=== PATIENT | female | born 1940 | race Two or more races ===

== ENCOUNTER 2017-05-21 20:07 | Inpatient (IN) | payer MEDICARE, OTHER ==
[~2017-05-21] VITALS: Ht 167.6 cm; Wt 54.5 kg
--- NOTE | 2017-05-21 20:23 | NUR ---
76 YO FEMALE BB RA FROM HOME, C/O SOB WITH HX OF STAGE 4 LUNG CANCER. PATIENT DS TO ER BED, SKIN WARM AND DRY, RESP EVEN AND UNLABORED. PT PLACED ON CARDAIC MONITOR. AWAITING ORDERS FROM PROVIDER
[2017-05-21 20:41] LABS: BASOPHILS % (AUTO) 0.2 % (0.0-2.0); EOSINOPHILS % (AUTO) 0.4 % (0.0-6.0); HEMATOCRIT 36 % (33-45); HEMOGLOBIN 11.2 g/dL (11.5-14.8); LYMPHOCYTES % (AUTO) 25.5 % (20.0-44.0); MEAN CORPUSCULAR HEMOGLOBIN 21 PG (26.0-33.0); MEAN CORPUSCULAR HGB CONC 31 g/dl (31.0-36.0); MEAN CORPUSCULAR VOLUME 67 fL (82-100); MONOCYTES % (AUTO) 8.8 % (2.0-12.0); NEUTROPHILS # (AUTO) 7.9 /CMM (1.8-8.9); NEUTROPHILS % (AUTO) 65.1 % (43.0-81.0); PLATELET COUNT (AUTO) 495 /CMM (150-450); RDW COEFFICIENT OF VARIATION 14.2 (11.5-15.0); WHITE BLOOD COUNT (AUTO) 11.9 K/uL (4.3-11.0)
[2017-05-21 20:52] LABS: CALCIUM, SERUM 10.7 mg/dL (8.5-10.1); CARBON DIOXIDE 32 mmol/L (21-32); CHLORIDE 102 mmol/L (98-107); CREATININE 0.9 mg/dL (0.6-1.3); GLUCOSE 97 mg/dL (74-106); POTASSIUM 3.4 mmol/L (3.5-5.1); SODIUM SERUM 141 mmol/L (136-145); UREA NITROGEN, BLOOD 18 mg/dL (7-18)
[2017-05-21 20:55] LABS: INR 0.93 (0.85-1.15)
[2017-05-21 21:00] LABS: TROPONIN I < 0.017 ng/mL (0.00-0.056)
[2017-05-21 21:04] LABS: ALANINE AMINOTRANSFERASE 19 U/L (12-78); ALBUMIN 2.7 g/dL (3.4-5.0); ALKALINE PHOSPHATASE 59 U/L (46-116); ASPARTATE AMINOTRANSFERASE 22 U/L (15-37); B-TYPE NATRIURETIC PEPTIDE 420 PG/ML (0-125); BILIRUBIN,DIRECT 0.1 mg/dL (0.0-0.2); BILIRUBIN,TOTAL 0.3 mg/dL (0.2-1.0)
--- NOTE | 2017-05-21 21:17 | NUR ---
PAGED EPIC FOR PANEL
[2017-05-21] MEDS ORDERED: IOHEXOL-350 100 ML VIAL IV ONE (21:36)
[2017-05-21] MEDS ORDERED: IV NS 0.9% 250 ML IV ONE (21:36)
[2017-05-21] MEDS ORDERED: CT SWABBABLE VALVE TRANS SET 1 EA INFUS.SET MC ONE (21:36)
--- NOTE | 2017-05-21 21:44 | NUR ---
CALLED NURSE SUP FOR TELE BED
[2017-05-21] MEDS ORDERED: ACETAMINOPHEN 325 MG TABLET PO PRN (22:00)
[2017-05-21] MEDS ORDERED: HYDROCODONE/APAP 5/325MG 1 EACH TABLET PO PRN (22:00)
[2017-05-21] MEDS ORDERED: LORAZEPAM 1 MG TABLET PO PRN (22:00)
[2017-05-21] MEDS ORDERED: ALBUTEROL FS 2.5 MG/0.5 ML VIAL.NEB NEB PRN (22:00)
[2017-05-21] MEDS ORDERED: Z GUARD REMEDY 2 OZ OINT TP PRN (22:00)
[2017-05-21] MEDS ORDERED: MAG HYDROX/AL HYDROX/SIMETH 30 ML UDC PO PRN (22:00)
[2017-05-21] MEDS ORDERED: MAGNESIUM HYDROXIDE 30 ML UDC PO PRN (22:00)
[2017-05-21] MEDS ORDERED: ONDANSETRON HCL/PF 4 MG/2 ML VIAL IVP PRN (22:00)
[2017-05-21] MEDS ORDERED: POTASSIUM CHLORIDE 20 MEQ TAB.PRT.SR PO ONE ×2 (22:00→22:02)
[2017-05-21 22:15] VITALS: BP 135/56
--- NOTE | 2017-05-21 23:08 | NUR ---
REPORT WAS GIVEN TO [place] LUNDBERG FOR MEGAN
[2017-05-21 23:45] VITALS: BP 145/80
--- NOTE | 2017-05-21 23:45 | NUR ---
MULTIMEDIA ASSISTANT NOTE RECEIVED PATIENT FROM ER VIA [facility]. NO SOB NOTED. PATIENT DENIES ANY PAIN OR DISTRESS. ALERT AD ORIENTED. IV SITE INTACT, WITH NO REDNESS OR INFILTRATION NOTED. SKIN INTACT, WITH NO BREAKDOWN OR BRUISING NOTED. ALL BELONGINGS CHECKED AND ACCOUNTED FOR. MED RECON COMPLETED. WAITING FOR MD ORDERS. BED LOCKED AND IN LOWEST POSITION. SIDE RAILS UP, CALL LIGHT WITHIN REACH. WILL CONTINUE TO MONITOR.
[2017-05-22] VITALS (7 sets, daily range): BP systolic 103–153; BP diastolic 56–105
[2017-05-22] MEDS: ENOXAPARIN SODIUM 40 MG/0.4 ML DISP.SYRIN SQ SCH ×2 (00:03→21:22)
[2017-05-22] MEDS: methylPREDNISolone SOD SUCC 125 MG/2ML VIAL IV SCH ×5 (01:31→21:20)
[2017-05-22] MEDS ORDERED: METF500T4 PO (02:08)
[2017-05-22] MEDS ORDERED: METO-356 PO (02:08)
--- NOTE | 2017-05-22 06:27 | NUR ---
TILTING HEAD BAND SAWYER NOTE PATIENT STABLE. ALL NEEDS MET AND ATTENDED TO. WILL ENDORSE TO DAY SHIFT FOR MEGAN.
[2017-05-22 07:35] LABS: BASOPHILS % (AUTO) 0.3 % (0.0-2.0); HEMATOCRIT 34 % (33-45); HEMOGLOBIN 10.6 g/dL (11.5-14.8); LYMPHOCYTES # (AUTO) 1.7 /CMM (0.8-4.8); LYMPHOCYTES % (AUTO) 16.4 % (20.0-44.0); MEAN CORPUSCULAR HEMOGLOBIN 21 PG (26.0-33.0); MEAN CORPUSCULAR HGB CONC 31 g/dl (31.0-36.0); MEAN CORPUSCULAR VOLUME 68 fL (82-100); MONOCYTES # (AUTO) 0.1 /CMM (0.1-1.30); MONOCYTES % (AUTO) 1.4 % (2.0-12.0); NEUTROPHILS # (AUTO) 8.7 /CMM (1.8-8.9); NEUTROPHILS % (AUTO) 81.9 % (43.0-81.0); PLATELET COUNT (AUTO) 495 /CMM (150-450); RDW COEFFICIENT OF VARIATION 15.6 (11.5-15.0); RED BLOOD CELL COUNT(AUTO) 5.04 MIL/uL (4.0-5.2); WHITE BLOOD COUNT (AUTO) 10.7 K/uL (4.3-11.0)
[2017-05-22 07:45] LABS: CALCIUM, SERUM 9.8 mg/dL (8.5-10.1); CARBON DIOXIDE 29 mmol/L (21-32); CHLORIDE 104 mmol/L (98-107); GLUCOSE 147 mg/dL (74-106); POTASSIUM 4.7 mmol/L (3.5-5.1); SODIUM SERUM 140 mmol/L (136-145); UREA NITROGEN, BLOOD 19 mg/dL (7-18)
[2017-05-22 07:46] LABS: MAGNESIUM 1.6 mg/dL (1.8-2.4); PHOSPHORUS 2.1 mg/dL (2.5-4.9)
[2017-05-22] MEDS ORDERED: POTASSIUM PHOSPHATE MM 15 MMOL in IV D5W 250 ML IV SCH (09:30)
[2017-05-22] MEDS: Magnesium 1GM/D5W 100ML PREMIX 100 ML IV SCH ×2 (09:47→10:51)
[2017-05-22 11:37] LABS: BAND % (MANUAL) 5 % (0.0-5.0); LYMPHOCYTES % (MANUAL) 16 % (16-48); METAMYELOCYTES % 1 % (0-0); MONOCYTES % (MANUAL) 3 % (0-11.0); MYELOCYTES % 2 % (0-0); NEUTROPHILS % (MANUAL) 73 (42-76)
[2017-05-22] MEDS: POTASSIUM PHOSPHATE MM 7.5 MMOL in IV D5W 100 ML IV SCH ×3 (12:20→15:45)
--- NOTE | 2017-05-22 13:00 | NUR ---
PTX IN AND PT. UP IN CHAIR,TOL. AIKEN.
[2017-05-22] MEDS: METFORMIN 500 MG TABLET PO SCH ×2 (13:30→17:00)
[2017-05-22] MEDS: METOPROLOL SUCCINATE 25 MG TAB.SR.24H PO SCH (13:59)
--- NOTE | 2017-05-22 14:33 | NUR ---
Asbestos Siding Mechanic Consult was requested by TOÑO Hope in regards to discussion of code status. Pt.'s daughter Kristin Serra ([phone]) stated that she wanted full code. Dr. Miryam Osman is aware and agreeable. Addendum: 05/22/17 at 1533 by ROBERTO CARLOS NEGRON WRONG PATIENT. PLEASE DISREGARD NOTE.
--- NOTE | 2017-05-22 15:00 | NUR ---
SOCIAL SERVICE IN TO DISCUSS CODE STSTUS WITH PT. TO FOLLOW UP TOMORROW WITH .
--- NOTE | 2017-05-22 18:00 | NUR ---
PHOSPHOROUS AND MG IV REPLACEMENT TODAY.EXPLANATION GIVEN TO PT.
[2017-05-22] MEDS ORDERED: BRIM5DRO5 EACHEYE (18:04)
[2017-05-22] MEDS ORDERED: LATA2.5D7 EACHEYE (18:04)
--- NOTE | 2017-05-22 18:50 | NUR ---
HOME MED RECONCILED INCLUDING EYE DROPS THAT PT. JUST REMEMBERED.
--- NOTE | 2017-05-22 19:30 | NUR ---
MS RN NOTE RECEIVED PATIENT AWAKE AND ALERT IN BED. ABLE TO MAKE NEEDS KNOWN. IV SITE INTACT WITH NO REDNESS OR INFILTRATION NOTED. BED LOCKED AND IN LOWEST POSITION. SIDE RAILS UP, CALL LIGHT WITHIN REACH. WILL CONTINUE TO MONITOR.
--- NOTE | 2017-05-22 20:28 | NUR ---
Spoke with patient, she is alert and pleasant. She lives on the 1st floor apartment with her 98 year old mother [address] [place] [address] tel# [phone]. Prior to admission, she was on hospice care Dx. lung cancer with [facility]. Patient was not able to provide contact info of the hospice company. She normally ambulates with a walker and cane prior to admission. She requires min-mod assist with adl's. She has a supervisor porcelain department caregiver 3hrs/day only. She has adequate DME: cane, walker, wheelchair, shower chair and rolator. Patient does not want to continue with hospice care. She plan to go home with homehealth. Family will provide ride home once discharge. Elizabeth Yost [phone]. Addendum: 05/22/17 at 2027 by LATONIA PALM RN Amended: Links added.
[2017-05-22] MEDS: BRIMONIDINE TARTRATE OPHT SOLN 5 ML BOTTLE EACHEYE SCH (21:21)
--- NOTE | 2017-05-23 06:43 | NUR ---
MS RN NOTE ALL NEEDS MET AND ATTENDED TO. WILL ENDORSE TO DAY SHIFT FOR MEGAN.
[2017-05-23 08:00] VITALS: BP 151/88
[2017-05-23] MEDS: METFORMIN 500 MG TABLET PO SCH ×2 (08:42→17:00)
[2017-05-23] MEDS: methylPREDNISolone SOD SUCC 125 MG/2ML VIAL IV SCH ×4 (08:44→21:34)
[2017-05-23 08:57] VITALS: BP 151/88
--- NOTE | 2017-05-23 08:59 | NUR ---
Ocean Freight Agent Consult was requested by Dr. Miryam Osman in regards to discussion of code status with pt.s family. Patient is a 76 year old Beninese female who was admitted to [facility] for shortness of breath and wheezing x1 day. SW met with pt. and pt.s brother Catracho at her bedside. Patient is oriented x4 and alert. Pt has been residing at [address] [place] [address]. Pts emergency contact is her daughter Lina Yost ([phone]), son Catracho ([phone]), and son Valerio ([phone]).Pt denies any use of drugs and alcohol. Patient has a history of smoking cigarettes, however currently she does not. Patient last smoked cigarettes in 2011. Patient denies any suicidal/homicidal ideation. Pt denies any auditory and visual hallucinations. SW spoke with patient in regards to code status. Patient reported that she did not want her brothers or sister involved in her decision. Pt stated that if it was a medical situation (i.e cardiac arrest) she wants DNR/DNI. However, she stated that if she were to choke on a piece of chicken that life saving measures could be taken. SW informed pts nurse Lane. Based on discussion with TOÑO Lane, she advised that the doctor will discuss the code status further with pt and he will complete POLST if necessary. Also informed that patient wants to make the decision herself and does not want her family involved regarding the code status. SW also informed charge nurse Mayorga regarding the above information. Plan: Charge nurse Mayorga will put POLST form in the patients file and TOÑO Kathleen will endorse to shift manager regarding patients wishes.
--- NOTE | 2017-05-23 09:00 | NUR ---
DR. GOODWIN IN TO SEE PT. STATES SHE TOLD HIM SHE HAS DIZZINESS ALL THE TIME.NO NEW ORDERS.
[2017-05-23] MEDS: METOPROLOL SUCCINATE 25 MG TAB.SR.24H PO SCH (09:35)
[2017-05-23] MEDS: BRIMONIDINE TARTRATE OPHT SOLN 5 ML BOTTLE EACHEYE SCH ×2 (11:07→17:43)
[2017-05-23] MEDS ORDERED: MECLIZINE HCL 12.5 MG TABLET PO PRN (12:30)
[2017-05-23 16:00] VITALS: BP 123/69
--- NOTE | 2017-05-23 18:00 | NUR ---
MEDICATED X1 FOR DIZZINESS WITH ANTIVERT.
--- NOTE | 2017-05-23 19:25 | NUR ---
MS RN NOTES RECEIVED PT IN BED, AWAKE, A/O X 3, VERBALLY RESPONSIVE. WATCHING TV AT THIS TIME. NO DISTRESS NOR SOB NOTED. RESPIRATION IS EVEN AND UNLABORED. IV SITE ON LAC INTACT AND PATENT. NO S/S OF INFILTRATION NOTED. DENIES ANY PAIN OR DISCOMFORT AT THIS TIME. SAFETY PRECAUTIONS OBSERVED. ALL NEEDS ATTENDED AND MET. KEPT COMFORTABLE. CALL LIGHT WITHIN REACH. WILL CONT TO MONITOR.
[2017-05-23 20:00] VITALS: BP 138/82
[2017-05-23] MEDS: ENOXAPARIN SODIUM 40 MG/0.4 ML DISP.SYRIN SQ SCH (21:34)
[2017-05-23] MEDS ORDERED: LATANOPROST EYE DROP 0.005% 2.5 ML BOTTLE EACHEYE SCH (22:00)
--- NOTE | 2017-05-24 06:48 | NUR ---
MS RN NOTES PT IN BED, AWAKE, A/O X 3, VERBALLY RESPONSIVE. WATCHING TV AT THIS TIME. NO DISTRESS NOR SOB NOTED. RESPIRATION IS EVEN AND UNLABORED. IV SITE ON LAC INTACT AND PATENT. NO S/S OF INFILTRATION NOTED. DENIES ANY PAIN OR DISCOMFORT AT THIS TIME. ALL DUE MEDS GIVEN. SAFETY PRECAUTIONS OBSERVED. ALL NEEDS ATTENDED AND MET. KEPT COMFORTABLE. CALL LIGHT WITHIN REACH. WILL ENDORSE TO NEXT SHIFT FOR MEGAN. .
[2017-05-24 08:00] VITALS: BP 127/68
--- NOTE | 2017-05-24 08:00 | NUR ---
ms rn received on bed, awake,alert,oriented x3,not in any form of distress, respirations even and unlabored,no sob noted. lungs are diminished,abdomen soft,positive bowel sounds,denies pain at this time, will monitor patient's condition.
[2017-05-24 08:58] VITALS: BP 122/68
[2017-05-24] MEDS: METOPROLOL SUCCINATE 25 MG TAB.SR.24H PO SCH (08:58)
[2017-05-24] MEDS: methylPREDNISolone SOD SUCC 125 MG/2ML VIAL IV SCH ×2 (08:58→12:59)
[2017-05-24] MEDS: METFORMIN 500 MG TABLET PO SCH (08:59)
--- NOTE | 2017-05-24 09:00 | NUR ---
ms serrano breakfast served,due meds given,tolerated well.
--- NOTE | 2017-05-24 12:00 | NUR ---
MS RN PATIENT [facility].
[2017-05-24] MEDS ORDERED: PRED20TA PO (12:08)
[2017-05-24] MEDS: BRIMONIDINE TARTRATE OPHT SOLN 5 ML BOTTLE EACHEYE SCH (12:59)
--- NOTE | 2017-05-24 14:10 | NUR ---
MS RN PATIENT WENT TO [facility],VIA AMBULANCE,NO DISTRESS NOTED, DISCHARGE INSTRUCTIONS ADMINISTRATIVE JOB TITLES AND UNDERSTOOD.NO DISTRESS NOTED.
== END 2017-05-24 14:30 | DRG 189 ==
LOC: ER 20:08 → TELE 22:00 → MED 05-22 10:15
PROVIDERS: ADMIT Internal Medicine; ATTEND Internal Medicine
DX: J96.01 Acute respiratory failure with hypoxia (principal); E43 Unspecified severe protein-calorie malnutrition; E11.9 Type 2 diabetes mellitus without complications; E88.09 Other disorders of plasma-protein metabolism, not elsewhere classified; J44.1 Chronic obstructive pulmonary disease with (acute) exacerbation; Z68.1 Body mass index [BMI] 19.9 or less, adult; I10 Essential (primary) hypertension; E87.6 Hypokalemia; E83.39 Other disorders of phosphorus metabolism; E83.42 Hypomagnesemia; Z87.891 Personal history of nicotine dependence; M62.50 Muscle wasting and atrophy, not elsewhere classified, unspecified site; R53.1 Weakness; Z85.118 Personal history of other malignant neoplasm of bronchus and lung; Z79.84 Long term (current) use of oral hypoglycemic drugs
CPT/HCPCS: 36415; 71045-TC; 80048-TC; 80076-TC; 82962-TC; 83735-TC; 83880; 84100-TC; 84484-TC; 85025-TC; 85730-TC; 87081-TC; 97116-TC; 97530-TC; A4606; J1650; J2405; J2930; J3475; J3490; J7050; J7060; J8597; Q9967; Z7610

== ENCOUNTER 2017-06-01 22:37 | Inpatient (IN) | payer MEDICARE, OTHER ==
[~2017-06-01] VITALS: Ht 149.9 cm; Wt 49.9 kg
[~2017-06-01 22:37] MED LIST: BRIM5DRO5 EACHEYE; LATA2.5D7 EACHEYE; METF500T4 PO; METO-356 PO; PRED20TA PO
[2017-06-01] MEDS ORDERED: ACETAMINOPHEN ES 500 MG TABLET ONE (23:27)
[2017-06-01] MEDS ORDERED: ACETAMINOPHEN ES 500 MG TABLET PO ONE (23:30)
[2017-06-01] MEDS ORDERED: IV NS 0.9% 1,000 ML BAG IV ONE (23:30)
[2017-06-01 23:35] LABS: BASOPHILS % (AUTO) 0.1 % (0.0-2.0); HEMATOCRIT 41 % (33-45); HEMOGLOBIN 12.4 g/dL (11.5-14.8); LYMPHOCYTES # (AUTO) 2.2 /CMM (0.8-4.8); LYMPHOCYTES % (AUTO) 8.1 % (20.0-44.0); MEAN CORPUSCULAR HEMOGLOBIN 21 PG (26.0-33.0); MEAN CORPUSCULAR HGB CONC 30 g/dl (31.0-36.0); MEAN CORPUSCULAR VOLUME 68 fL (82-100); MONOCYTES % (AUTO) 3.6 % (2.0-12.0); NEUTROPHILS # (AUTO) 23.8 /CMM (1.8-8.9); NEUTROPHILS % (AUTO) 88.2 % (43.0-81.0); PLATELET COUNT (AUTO) 247 /CMM (150-450); RDW COEFFICIENT OF VARIATION 15.8 (11.5-15.0); RED BLOOD CELL COUNT(AUTO) 6.04 MIL/uL (4.0-5.2); WHITE BLOOD COUNT (AUTO) 26.9 K/uL (4.3-11.0)
[2017-06-01 23:39] LABS: APPEARANCE,URINE SL CLOUDY (CLEAR); BILIRUBIN,URINE NEGATIVE (NEGATIVE); BLOOD, URINE 3+ Ery/uL (NEGATIVE); COLOR,URINE YELLOW (YELLOW); KETONES,URINE TRACE (NEGATIVE); LEUKOCYTE ESTERASE ,URINE TRACE (NEGATIVE); NITRITE, URINE NEGATIVE (NEGATIVE); PH,URINE 5.5 (5.0-8.0); PROTEIN,URINE 2+ mg/dl (NEGATIVE); UGLUCOSE NEGATIVE (NEGATIVE); UROBILINOGEN,URINE 0.2 EU/dL (0.2)
[2017-06-01 23:54] LABS: INR 0.96 (0.87-1.13)
[2017-06-01 23:56] LABS: BACTERIA,URINE None seen /HPF (None Seen); SQUAMOUS EPITHELIAL CELL,UR Few /HPF (None Seen)
[2017-06-01 23:57] LABS: URINE AMORPHOUS URATE Moderate /HPF (None Seen)
[2017-06-02] LABS: CARBON DIOXIDE 25 mmol/L (21-32); CHLORIDE 93 mmol/L (98-107); CREATININE 0.9 mg/dL (0.6-1.3); GLUCOSE 161 mg/dL (74-106); POTASSIUM 3.6 mmol/L (3.5-5.1); SODIUM SERUM 126 mmol/L (136-145); UREA NITROGEN, BLOOD 28 mg/dL (7-18)
[2017-06-02] MEDS ORDERED: CEFTRIAXONE 1GM BAG (ER ONLY) 1 GM/50 ML PIGGYBACK IV ONE
[2017-06-02] MEDS ORDERED: AZITHROMYCIN 500 MG in IV D5W 250 ML IV ONE ×2
[2017-06-02] MEDS ORDERED: CEFTRIAXONE 1GM BAG (ER ONLY) 50 ML IV ONE (00:01)
[2017-06-02] MEDS ORDERED: AZITHROMYCIN 500 MG VIAL ONE (00:01)
[2017-06-02 00:03] LABS: ALANINE AMINOTRANSFERASE 29 U/L (12-78); ALBUMIN 2.7 g/dL (3.4-5.0); ALKALINE PHOSPHATASE 75 U/L (46-116); ASPARTATE AMINOTRANSFERASE 27 U/L (15-37); BILIRUBIN,DIRECT 0.2 mg/dL (0.0-0.2); BILIRUBIN,TOTAL 0.5 mg/dL (0.2-1.0); TOTAL PROTEIN, SERUM 6.9 g/dL (6.4-8.2)
[2017-06-02 00:05] LABS: TROPONIN I < 0.017 ng/mL (0.00-0.056)
[2017-06-02] MEDS ORDERED: IOHEXOL-350 100 ML VIAL IV ONE (00:33)
[2017-06-02] MEDS ORDERED: CT SWABBABLE VALVE TRANS SET 1 EA INFUS.SET MC ONE (00:33)
[2017-06-02] MEDS ORDERED: IV NS 0.9% 250 ML IV ONE (00:34)
[2017-06-02 00:37] LABS: BAND % (MANUAL) 2 % (0.0-5.0); LYMPHOCYTES % (MANUAL) 11 % (16-48); MONOCYTES % (MANUAL) 1 % (0-11.0); NEUTROPHILS % (MANUAL) 86 (42-76)
[2017-06-02] MEDS ORDERED: MAGNESIUM HYDROXIDE 30 ML UDC PO PRN (02:00)
[2017-06-02] MEDS ORDERED: ONDANSETRON HCL/PF 4 MG/2 ML VIAL IVP PRN (02:00)
[2017-06-02] MEDS ORDERED: HYDROCODONE/APAP 5/325MG 1 EACH TABLET PO PRN (02:00)
[2017-06-02] MEDS ORDERED: MAG HYDROX/AL HYDROX/SIMETH 30 ML UDC PO PRN (02:00)
[2017-06-02] MEDS ORDERED: ACETAMINOPHEN 325 MG TABLET PO PRN (02:00)
[2017-06-02] MEDS ORDERED: HYDROCODONE/APAP 10/325MG 1 EA TABLET PO PRN (02:00)
[2017-06-02 02:30] VITALS: BP 124/90
[2017-06-02] MEDS ORDERED: ALBUTEROL FS 2.5 MG/0.5 ML VIAL.NEB NEB PRN (02:30)
[2017-06-02] MEDS ORDERED: IPRATROPIUM NEB FS 0.5 MG/2.5 ML AMPUL.NEB NEB PRN (02:30)
[2017-06-02 07:01] LABS: MAGNESIUM 1.7 mg/dL (1.8-2.4); PHOSPHORUS 2.9 mg/dL (2.5-4.9)
[2017-06-02 08:00] VITALS: BP 139/71
[2017-06-02] MEDS: PANTOPRAZOLE 40 MG TABLET.DR PO SCH (08:26)
[2017-06-02] MEDS: METFORMIN 500 MG TABLET PO SCH ×3 (09:00→17:00)
[2017-06-02] MEDS ORDERED: CEFTRIAXONE 1 G in IV NS 0.9% 50 ML IV SCH ×2 (09:00→21:00)
[2017-06-02] MEDS: IV NS 0.9% 1,000 ML IV PRN (09:14)
[2017-06-02] MEDS: LACTOBACILLUS RHAMNOSUS GG 1 EACH CAP.SPRINK PO SCH ×2 (09:15→17:51)
[2017-06-02] MEDS: predniSONE 20 MG TABLET PO SCH (09:15)
[2017-06-02] MEDS: METOPROLOL SUCCINATE 25 MG TAB.SR.24H PO SCH (09:15)
[2017-06-02] MEDS: BRIMONIDINE TARTRATE OPHT SOLN 5 ML BOTTLE EACHEYE SCH ×2 (09:16→17:51)
[2017-06-02] MEDS ORDERED: AZITHROMYCIN 500 MG in IV D5W 250 ML IV SCH (10:00)
[2017-06-02] MEDS: Magnesium 1GM/D5W 100ML PREMIX 100 ML IV SCH ×2 (11:38→12:53)
[2017-06-02 15:44] LABS: CALCIUM, SERUM 7.8 mg/dL (8.5-10.1); CARBON DIOXIDE 27 mmol/L (21-32); CHLORIDE 107 mmol/L (98-107); CREATININE 0.8 mg/dL (0.6-1.3); GLUCOSE 140 mg/dL (74-106); POTASSIUM 3.7 mmol/L (3.5-5.1); SODIUM SERUM 143 mmol/L (136-145); UREA NITROGEN, BLOOD 20 mg/dL (7-18)
[2017-06-02 16:00] VITALS: BP 115/62
[2017-06-02 16:44] LABS: BASOPHILS % (AUTO) 0.1 % (0.0-2.0); EOSINOPHILS % (AUTO) 0.1 % (0.0-6.0); HEMATOCRIT 37 % (33-45); HEMOGLOBIN 11.6 g/dL (11.5-14.8); LYMPHOCYTES # (AUTO) 2.3 /CMM (0.8-4.8); LYMPHOCYTES % (AUTO) 10.5 % (20.0-44.0); MEAN CORPUSCULAR HEMOGLOBIN 21 PG (26.0-33.0); MEAN CORPUSCULAR HGB CONC 31 g/dl (31.0-36.0); MEAN CORPUSCULAR VOLUME 69 fL (82-100); MONOCYTES # (AUTO) 0.9 /CMM (0.1-1.30); MONOCYTES % (AUTO) 4.4 % (2.0-12.0); NEUTROPHILS # (AUTO) 18.3 /CMM (1.8-8.9); NEUTROPHILS % (AUTO) 84.9 % (43.0-81.0); PLATELET COUNT (AUTO) 221 /CMM (150-450); RDW COEFFICIENT OF VARIATION 15.1 (11.5-15.0); RED BLOOD CELL COUNT(AUTO) 5.41 MIL/uL (4.0-5.2); WHITE BLOOD COUNT (AUTO) 21.5 K/uL (4.3-11.0)
[2017-06-02 17:21] LABS: BAND % (MANUAL) 7 % (0.0-5.0); LYMPHOCYTES % (MANUAL) 10 % (16-48); MONOCYTES % (MANUAL) 5 % (0-11.0); NEUTROPHILS % (MANUAL) 78 (42-76)
[2017-06-02] MEDS: LATANOPROST EYE DROP 0.005% 2.5 ML BOTTLE EACHEYE SCH (17:53)
[2017-06-02] MEDS: CEFEPIME 1 GM in IV D5W 50 ML IV SCH ×2 (18:54→20:43)
[2017-06-02 20:00] VITALS: BP 129/67
[2017-06-02] MEDS: AZITHROMYCIN 500 MG in IV D5W 250 ML IV SCH (22:12)
[2017-06-02] MEDS: ZOLPIDEM TARTRATE 5 MG TABLET PO PRN (22:14)
[2017-06-03] VITALS: BP 129/67
[2017-06-03] MEDS: IV NS 0.9% 1,000 ML IV PRN (04:12)
[2017-06-03 06:27] LABS: BASOPHILS % (AUTO) 0.1 % (0.0-2.0); EOSINOPHILS % (AUTO) 0.1 % (0.0-6.0); HEMATOCRIT 32 % (33-45); HEMOGLOBIN 10.1 g/dL (11.5-14.8); LYMPHOCYTES # (AUTO) 1.5 /CMM (0.8-4.8); MEAN CORPUSCULAR HEMOGLOBIN 21 PG (26.0-33.0); MEAN CORPUSCULAR HGB CONC 31 g/dl (31.0-36.0); MEAN CORPUSCULAR VOLUME 68 fL (82-100); MONOCYTES # (AUTO) 0.8 /CMM (0.1-1.30); MONOCYTES % (AUTO) 4.7 % (2.0-12.0); NEUTROPHILS # (AUTO) 14.6 /CMM (1.8-8.9); NEUTROPHILS % (AUTO) 86.1 % (43.0-81.0); PLATELET COUNT (AUTO) 197 /CMM (150-450); RDW COEFFICIENT OF VARIATION 16.5 (11.5-15.0); RED BLOOD CELL COUNT(AUTO) 4.72 MIL/uL (4.0-5.2); WHITE BLOOD COUNT (AUTO) 16.9 K/uL (4.3-11.0)
[2017-06-03 06:40] LABS: CALCIUM, SERUM 7.5 mg/dL (8.5-10.1); CARBON DIOXIDE 26 mmol/L (21-32); CHLORIDE 109 mmol/L (98-107); CREATININE 0.7 mg/dL (0.6-1.3); GLUCOSE 93 mg/dL (74-106); MAGNESIUM 2.1 mg/dL (1.8-2.4); POTASSIUM 3.6 mmol/L (3.5-5.1); SODIUM SERUM 144 mmol/L (136-145); UREA NITROGEN, BLOOD 18 mg/dL (7-18)
[2017-06-03 06:41] LABS: OSMOLALITY,SERUM 289 mOS/kg (278-305)
[2017-06-03 08:00] VITALS: BP 105/84
[2017-06-03] MEDS: BOOST GLUCOSE CONTROL VANILLA 237 ML BOX PO SCH ×2 (08:00→11:52)
[2017-06-03 08:17] LABS: BAND % (MANUAL) 6 % (0.0-5.0); LYMPHOCYTES % (MANUAL) 10 % (16-48); MONOCYTES % (MANUAL) 4 % (0-11.0); NEUTROPHILS % (MANUAL) 80 (42-76)
[2017-06-03] MEDS: METFORMIN 500 MG TABLET PO SCH ×3 (08:38→16:51)
[2017-06-03] MEDS: CEFEPIME 1 GM in IV D5W 50 ML IV SCH ×2 (08:39→20:47)
[2017-06-03] MEDS: PANTOPRAZOLE 40 MG TABLET.DR PO SCH (08:39)
[2017-06-03] MEDS: predniSONE 20 MG TABLET PO SCH (08:39)
[2017-06-03] MEDS: LACTOBACILLUS RHAMNOSUS GG 1 EACH CAP.SPRINK PO SCH ×2 (08:39→16:50)
[2017-06-03] MEDS: METOPROLOL SUCCINATE 25 MG TAB.SR.24H PO SCH (08:39)
[2017-06-03] MEDS: BRIMONIDINE TARTRATE OPHT SOLN 5 ML BOTTLE EACHEYE SCH ×2 (08:41→16:52)
[2017-06-03 12:00] VITALS: BP 108/58
[2017-06-03 16:00] VITALS: BP 107/60
[2017-06-03] MEDS: LATANOPROST EYE DROP 0.005% 2.5 ML BOTTLE EACHEYE SCH (17:00)
[2017-06-03] MEDS: AZITHROMYCIN 500 MG in IV D5W 250 ML IV SCH (22:42)
[2017-06-04 04:00] VITALS: BP 130/65
[2017-06-04 07:04] LABS: BASOPHILS % (AUTO) 0.2 % (0.0-2.0); EOSINOPHILS % (AUTO) 0.2 % (0.0-6.0); HEMATOCRIT 32 % (33-45); HEMOGLOBIN 9.9 g/dL (11.5-14.8); LYMPHOCYTES # (AUTO) 1.3 /CMM (0.8-4.8); LYMPHOCYTES % (AUTO) 15.5 % (20.0-44.0); MEAN CORPUSCULAR HEMOGLOBIN 21 PG (26.0-33.0); MEAN CORPUSCULAR HGB CONC 31 g/dl (31.0-36.0); MEAN CORPUSCULAR VOLUME 68 fL (82-100); MONOCYTES # (AUTO) 0.7 /CMM (0.1-1.30); NEUTROPHILS # (AUTO) 6.5 /CMM (1.8-8.9); NEUTROPHILS % (AUTO) 76.1 % (43.0-81.0); PLATELET COUNT (AUTO) 200 /CMM (150-450); RDW COEFFICIENT OF VARIATION 16.2 (11.5-15.0); RED BLOOD CELL COUNT(AUTO) 4.65 MIL/uL (4.0-5.2); WHITE BLOOD COUNT (AUTO) 8.5 K/uL (4.3-11.0)
[2017-06-04 07:09] LABS: CALCIUM, SERUM 7.8 mg/dL (8.5-10.1); CARBON DIOXIDE 28 mmol/L (21-32); CHLORIDE 107 mmol/L (98-107); CREATININE 0.6 mg/dL (0.6-1.3); GLUCOSE 108 mg/dL (74-106); POTASSIUM 3.3 mmol/L (3.5-5.1); SODIUM SERUM 142 mmol/L (136-145); UREA NITROGEN, BLOOD 18 mg/dL (7-18)
[2017-06-04 08:00] VITALS: BP 171/82
[2017-06-04] MEDS: BOOST GLUCOSE CONTROL VANILLA 237 ML BOX PO SCH ×2 (08:15→16:31)
[2017-06-04] MEDS: CEFEPIME 1 GM in IV D5W 50 ML IV SCH ×2 (08:15→21:06)
[2017-06-04] MEDS: predniSONE 20 MG TABLET PO SCH (08:18)
[2017-06-04] MEDS: METFORMIN 500 MG TABLET PO SCH ×2 (08:18→16:31)
[2017-06-04] MEDS: PANTOPRAZOLE 40 MG TABLET.DR PO SCH (08:18)
[2017-06-04] MEDS: BRIMONIDINE TARTRATE OPHT SOLN 5 ML BOTTLE EACHEYE SCH ×2 (08:18→16:31)
[2017-06-04] MEDS: LACTOBACILLUS RHAMNOSUS GG 1 EACH CAP.SPRINK PO SCH ×2 (08:18→16:31)
[2017-06-04] MEDS: METOPROLOL SUCCINATE 25 MG TAB.SR.24H PO SCH (09:00)
[2017-06-04 09:26] LABS: EOSINOPHILS % (MANUAL) 1 % (0-4); LYMPHOCYTES % (MANUAL) 20 % (16-48); MONOCYTES % (MANUAL) 6 % (0-11.0); NEUTROPHILS % (MANUAL) 73 (42-76)
[2017-06-04 12:00] VITALS: BP 171/82
[2017-06-04] MEDS ORDERED: POTASSIUM CHLORIDE 20 MEQ TAB.PRT.SR PO SCH (12:00)
[2017-06-04 16:00] VITALS: BP 137/76
[2017-06-04] MEDS: LATANOPROST EYE DROP 0.005% 2.5 ML BOTTLE EACHEYE SCH (17:17)
[2017-06-04] MEDS ORDERED: Z GUARD REMEDY 4 OZ OINT TP PRN (17:30)
[2017-06-04 20:00] VITALS: BP 137/75
[2017-06-04] MEDS: ZOLPIDEM TARTRATE 5 MG TABLET PO PRN (21:06)
[2017-06-04] MEDS ORDERED: AZITHROMYCIN 250 MG TABLET PO SCH (22:00)
[2017-06-05 04:00] VITALS: BP 157/90
[2017-06-05 07:00] VITALS: BP 153/87
[2017-06-05 08:00] VITALS: BP 153/87
[2017-06-05] MEDS: BOOST GLUCOSE CONTROL VANILLA 237 ML BOX PO SCH (08:00)
[2017-06-05 08:01] LABS: BASOPHILS % (AUTO) 0.2 % (0.0-2.0); EOSINOPHILS % (AUTO) 0.1 % (0.0-6.0); HEMATOCRIT 33 % (33-45); HEMOGLOBIN 10.1 g/dL (11.5-14.8); LYMPHOCYTES # (AUTO) 3.3 /CMM (0.8-4.8); LYMPHOCYTES % (AUTO) 34.6 % (20.0-44.0); MEAN CORPUSCULAR HEMOGLOBIN 21 PG (26.0-33.0); MEAN CORPUSCULAR HGB CONC 31 g/dl (31.0-36.0); MEAN CORPUSCULAR VOLUME 68 fL (82-100); MONOCYTES # (AUTO) 0.9 /CMM (0.1-1.30); MONOCYTES % (AUTO) 9.2 % (2.0-12.0); NEUTROPHILS # (AUTO) 5.3 /CMM (1.8-8.9); NEUTROPHILS % (AUTO) 55.9 % (43.0-81.0); PLATELET COUNT (AUTO) 223 /CMM (150-450); RDW COEFFICIENT OF VARIATION 16.1 (11.5-15.0); RED BLOOD CELL COUNT(AUTO) 4.86 MIL/uL (4.0-5.2); WHITE BLOOD COUNT (AUTO) 9.4 K/uL (4.3-11.0)
[2017-06-05 08:06] LABS: CALCIUM, SERUM 8.6 mg/dL (8.5-10.1); CARBON DIOXIDE 27 mmol/L (21-32); CHLORIDE 105 mmol/L (98-107); CREATININE 0.7 mg/dL (0.6-1.3); GLUCOSE 87 mg/dL (74-106); POTASSIUM 3.3 mmol/L (3.5-5.1); SODIUM SERUM 140 mmol/L (136-145); UREA NITROGEN, BLOOD 24 mg/dL (7-18)
[2017-06-05 08:13] VITALS: BP 153/87
[2017-06-05] MEDS: METFORMIN 500 MG TABLET PO SCH (08:13)
[2017-06-05] MEDS: METOPROLOL SUCCINATE 25 MG TAB.SR.24H PO SCH (08:13)
[2017-06-05] MEDS: LACTOBACILLUS RHAMNOSUS GG 1 EACH CAP.SPRINK PO SCH (08:13)
[2017-06-05] MEDS: PANTOPRAZOLE 40 MG TABLET.DR PO SCH (08:13)
[2017-06-05] MEDS: predniSONE 20 MG TABLET PO SCH (08:13)
[2017-06-05] MEDS: CEFEPIME 1 GM in IV D5W 50 ML IV SCH (08:14)
[2017-06-05] MEDS: BRIMONIDINE TARTRATE OPHT SOLN 5 ML BOTTLE EACHEYE SCH (08:16)
[2017-06-05] MEDS ORDERED: POTASSIUM CHLORIDE 20 MEQ TAB.PRT.SR PO SCH (11:00)
[2017-06-05] MEDS ORDERED: LEVO250T2 PO (11:50)
[2017-06-05 11:53] LABS: LYMPHOCYTES % (MANUAL) 45 % (16-48); MONOCYTES % (MANUAL) 8 % (0-11.0); NEUTROPHILS % (MANUAL) 47 (42-76)
== END 2017-06-05 16:30 | DRG 871 ==
LOC: ER 22:38 → TELE1 06-02 00:32 → MEDSG1 06-02 10:36 → MEDSG2 06-05 06:33
PROVIDERS: ADMIT Nurse Practitioner Acute Care; ATTEND Nurse Practitioner Acute Care
DX: A41.9 Sepsis, unspecified organism (principal); J15.6 Pneumonia due to other Gram-negative bacteria; J96.01 Acute respiratory failure with hypoxia; N17.0 Acute kidney failure with tubular necrosis; J15.9 Unspecified bacterial pneumonia; E11.9 Type 2 diabetes mellitus without complications; N39.0 Urinary tract infection, site not specified; E83.42 Hypomagnesemia; E86.0 Dehydration; B96.20 Unspecified Escherichia coli [E. coli] as the cause of diseases classified elsewhere; E87.1 Hypo-osmolality and hyponatremia; D50.8 Other iron deficiency anemias; Z92.3 Personal history of irradiation; Z92.21 Personal history of antineoplastic chemotherapy; Z90.710 Acquired absence of both cervix and uterus; Z85.118 Personal history of other malignant neoplasm of bronchus and lung; Z66 Do not resuscitate; Z51.5 Encounter for palliative care; Y95 Nosocomial condition; Z88.8 Allergy status to other drugs, medicaments and biological substances; Z79.84 Long term (current) use of oral hypoglycemic drugs; Z79.899 Other long term (current) drug therapy; Z85.819 Personal history of malignant neoplasm of unspecified site of lip, oral cavity, and pharynx; I10 Essential (primary) hypertension; Z98.890 Other specified postprocedural states; H40.9 Unspecified glaucoma; E87.6 Hypokalemia; I70.0 Atherosclerosis of aorta
CPT/HCPCS: 36415; 71045-TC; 80048-TC; 80076-TC; 81000-TC; 83605-TC; 83735-TC; 83935-TC; 84100-TC; 84300-TC; 84484-TC; 85025-TC; 85730-TC; 87040-TC; 87081-TC; 87086-TC; 87186-TC; 97116-TC; 97530-TC; A4216; A4606; J0456; J0692; J0696; J3475; J7030; J7040; J7050; J7060; Q9967; Z7610